=== PATIENT | female | born 2000 | race Two or more races ===

== ENCOUNTER 2022-06-07 23:16 | Emergency (ER) | payer OTHER ==
[~2022-06-07] VITALS: Ht 167.6 cm; Wt 53.1 kg
[2022-06-07 23:38] VITALS: BP 121/68
[2022-06-08] MEDS ORDERED: CEFTRIAXONE SODIUM 500 MG/VIAL IM ONE (02:00)
[2022-06-08] MEDS ORDERED: FLUCONAZOLE 100MG TABLET PO ONE (02:00)
[2022-06-08] MEDS ORDERED: AZITHROMYCIN 500 MG TABLET PO ONE (02:00)
[2022-06-08] MEDS ORDERED: IBUPROFEN 600MG TABLET PO ONE (02:00)
[2022-06-08] MEDS ORDERED: FLUCONAZOLE 150MG TABLET PO NR (02:00)
[2022-06-08 02:37] LABS: CLARITY URINE CLOUDY (CLEAR); COLOR URINE YELLOW (YELLOW); KETONES URINE NEGATIVE (NEGATIVE); LEUKOCYTE ESTERASE URINE 1+ (NEGATIVE); NITRITE URINE NEGATIVE (NEGATIVE); OCCULT BLOOD URINE NEGATIVE (NEGATIVE); PROTEIN URINE NEGATIVE (NEGATIVE); SPECIFIC GRAVITY URINE 1.017 (1.005-1.030)
[2022-06-08] MEDS ORDERED: CEPH500C2 MT (03:41)
[2022-06-08] MEDS ORDERED: CEPH500C2 PO (12:35)
[2022-06-10 08:10] LABS: NEISSERIA GONORRHOEAE NAA Negative (Negative)
== END 2022-06-08 04:08 | disposition home or self-care (01) ==
LOC: ER 23:16
DX: B37.3 Candidiasis of vulva and vagina (principal); Z87.440 Personal history of urinary (tract) infections
CPT/HCPCS: 81003; 87491; 87591; 99283